=== PATIENT | male | born 1990 | race Caucasian/White ===

== ENCOUNTER 2019-08-03 11:19 | Outpatient (CLI) | payer OTHER, SELFPAY ==
--- NOTE | ~2019-08-03 | XR_ITS ---
EXAMINATION: XR chest 2V DATE: 08/03/2019 11:43 INDICATION: Chest pain TECHNIQUE: PA and lateral views of the chest are obtained. COMPARISON: None available FINDINGS: The lungs are free of acute opacities. There is no pleural effusion or pneumothorax. The ca rdiomediastinal silhouette is normal. The visualized bones and soft tissues are unremarkable. IMPRESSION: 1. No acute cardiopulmonary abnormality. Reviewed, dictated and finalized at location A.
--- NOTE | 2019-08-03 11:22 | ECG_ITS ---
Measurements Intervals [place] Rate: 63 P: 63 OK: 165 QRS: 58 QRSD: 102 T: 46 QT: 382 QTc: 393 Interpretive Statements SINUS RHYTHM DELAYED PRECORDIAL R/S TRANSITION BASELINE ARTIFACT- I, III, AVL BORDERLINE ECG Electronically Signed On 08-03-2019 11:49:37 CDT by Ramsey Ro D.O.
== END 2019-08-03 11:20 | disposition home or self-care (01) ==
LOC: CHSCARD 11:22
PROVIDERS: PCP Family Medicine; Visit Provider Family Medicine
DX: R07.9 Chest pain, unspecified (principal)
CPT/HCPCS: 71046; 93005

== ENCOUNTER 2019-08-06 11:16 | Emergency (ER) | payer OTHER, SELFPAY ==
[2019-08-06 11:36] VITALS: BP 137/80; PULSE 86; RESP 18; TEMP 36.8; O2SAT 98
--- NOTE | 2019-08-06 12:25 | ED.LOWEXIN ---
HPI - Extremity Injury (Lower) General Chief Complaint: Extremity Injury, Lower Stated Complaint: left hip pain Source: patient Mode of arrival: ambulatory Limitations: no limitations History of Present Illness HPI Narrative: This 28-year-old male developed left proximal thigh pain 2 days ago when he pivoted while standing. He immediately developed intense 10/10 sharp pain in the upper left leg. The pain is subsided somewhat since then. It increases with walking, climbing stairs, and driving. Sitting of relieves the pain. Laying on his left side at night reduces pain which is definitely increased if he is on his back or right side with his knees bent. The pain was radiating down his left thigh to his knee today. He is worried about attempting to do his job having severe pain. He has a history of L5-S1 disc herniation status post microscopic surgical repair. Has had mild low back discomfort on some days. Never associated with radiation. His radiculopathy when he had his radiation was on the right side. This pain is not associated with back discomfort. he has only slight discomfort with forward flexion of the hip. He was seen Two days ago by Dr. Horton with 2 1 minutes episodes that same day of severe sharp midsternal pain. This was associated with a spike seen on EKG. He was referred to cardiology. No PPI or other medications were started. He has had no chest pain since Related Data Home Medications Medication Instructions Recorded Confirmed No Home Medications 07/20/19 08/06/19 Allergies Allergy/AdvReac Type Severity Reaction Status Date / Time No Known Allergies Allergy Verified 08/03/19 11:21 Review of Systems Constitutional: Constitutional: Denies fever(s) Cardiovascular: Cardiovascular: Reports no additional cardiovascular complaints Respiratory: Respiratory: Denies dyspnea Gastrointestinal: Gastrointestinal: Denies diarrhea, Denies nausea and Denies vomiting Musculoskeletal: Musculoskeletal: Reports no additional musculoskeletal complaints Neurologic: Comments: No numbness or weakness in his lower extremities. [facility] Past Medical History Medical History No active medical problems Social History Social History Smoking status: Never smoker Additional living arrangements comments: . Exam Narrative: Exam Narrative: Healthy-appearing male sitting on the bed with his right leg over the side in his left leg being on the bed hip abducted and internally rotated. Able to walk without a limp. Const: Orientation/consciousness: patient oriented x3 Chest: Chest palpation & inspection: normal inspection of the chest Resp: Effort & Inspection: normal respiratory effort Cardio: Rhythm: regular rhythm Back/Spine/Pelvis: Back: no CVA tenderness Other: no lumbar sacral spinous tenderness with percussion. No lumbosacral tenderness. Skin: General skin exam: normal color Neuro: Other: 2+ patellar and ankle jerk reflexes, symmetric. Light touch sensation to the feet are intact. 5+ great toe dorsiflexion strength, negative straight leg raise. Extrem: Other: left lateral leg is without swelling ecchymosis erythema or warmth. Tender over the left greater trochanter and distal to the mid thigh. Endpoint of internal rotation reproduces the pain external rotation does not range of motion is within normal limits. Addie's test is positive Course Course Emergency Course: Dx and treatment of IT Band syndrome discussed. 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 Vital Signs Vital signs: Vital Signs Temperature 36.8 C 08/06/19 11:36 Pulse Rate 86 08/06/19 11:36 Respiratory Rate 18 08/06/19 11:36 Blood Pressure 137/80 08/06/19 11:36 Pulse Oximetry 98 08/06/19 11:36 Temperature 36.8 C 08/06/19 11:36 Pulse Rate
[2019-08-06 12:30] VITALS: RESP 16
== END 2019-08-06 12:31 | disposition home or self-care (01) ==
PROVIDERS: Emergency Provider Family Medicine; PCP Family Medicine
DX: M76.32 Iliotibial band syndrome, left leg (principal)
CPT/HCPCS: 99281; 99282

== ENCOUNTER 2019-08-28 12:19 | Outpatient (CLI) | payer OTHER, SELFPAY ==
--- NOTE | 2019-08-28 13:02 | EST_ITS ---
Patient Info Name: Benny Machado Age: 28 years : 1990 Gender: Male Ht: 70 in Exam Date: 08/28/2019 1:14 PM Exam Location: [facility] Patient Status: Outpatient Admit Date: 08/28/2019 Staff Ordering Physician: Ramsey Ro DO Attending Provider: DO JULISSA Exam Type: CA stress test treadmill Summary 1. 1. Negative Del exercise stress test for ischemic ST changes by ECG criteria. 2. 2. Good functional capacity, achieving 10.9 METs of workload. 3. 3. Appropriate HR response to exercise. 4. 4. Appropriate HR recovery at 1 minute post exercise. 5. 5. No imaging with stress testing. 6. 6. Patient informed of the above results. Protocol: Del Stress ECG Details Stage: REST Duration (min): 1 min : 11 sec Speed (mph): 0.0 Grade (%): 0 HR (bpm): 88 SBP (mmHg): 126 DBP (mmHg): 93 METS: --- Stage: REST Duration (min): 2 min : 53 sec Speed (mph): 0.0 Grade (%): 0 HR (bpm): 76 SBP (mmHg): 126 DBP (mmHg): 93 METS: --- Stage: STAGE 1 Duration (min): 1 min : 0 sec Speed (mph): 1.7 Grade (%): 10 HR (bpm): 107 SBP (mmHg): 126 DBP (mmHg): 93 METS: --- Stage: STAGE 1 Duration (min): 2 min : 0 sec Speed (mph): 1.7 Grade (%): 10 HR (bpm): 109 SBP (mmHg): 126 DBP (mmHg): 93 METS: --- Stage: STAGE 1 Duration (min): 3 min : 0 sec Speed (mph): 1.7 Grade (%): 10 HR (bpm): 111 SBP (mmHg): 128 DBP (mmHg): 86 METS: --- Stage: STAGE 2 Duration (min): 1 min : 0 sec Speed (mph): 2.5 Grade (%): 12 HR (bpm): 121 SBP (mmHg): 128 DBP (mmHg): 86 METS: --- Stage: STAGE 2 Duration (min): 2 min : 0 sec Speed (mph): 2.5 Grade (%): 12 HR (bpm): 127 SBP (mmHg): 128 DBP (mmHg): 86 METS: --- Stage: STAGE 2 Duration (min): 3 min : 0 sec Speed (mph): 2.5 Grade (%): 12 HR (bpm): 134 SBP (mmHg): 155 DBP (mmHg): 90 METS: --- Stage: STAGE 3 Duration (min): 1 min : 0 sec Speed (mph): 3.4 Grade (%): 14 HR (bpm): 143 SBP (mmHg): 155 DBP (mmHg): 90 METS: --- Stage: STAGE 3 Duration (min): 2 min : 0 sec Speed (mph): 3.4 Grade (%): 14 HR (bpm): 155 SBP (mmHg): 155 DBP (mmHg): 90 METS: --- Stage: STAGE 3 Duration (min): 3 min : 0 sec Speed (mph): 3.4 Grade (%): 14 HR (bpm): 156 SBP (mmHg): 177 DBP (mmHg): 99 METS: --- Stage: STAGE 4 Duration (min): 0 min : 22 sec Speed (mph): 4.2 Grade (%): 16 HR (bpm): 164 SBP (mmHg): 177 DBP (mmHg): 99 METS: --- Stage: RECOVERY Duration (min): 0 min : 37 sec Speed (mph): 0.0 Grade (%): 0 HR (bpm): 145 SBP (mmHg): 177 DBP (mmHg): 99 METS: --- Stage: RECOVERY Duration (min): 1 min : 37 sec Speed (mph): 0.0 Grade (%): 0 HR (bpm): 109
[2019-08-28 14:33] LABS: Cholesterol 141 mg/dL (0-200); HDL Direct 50 mg/dL (40-60); LDL Cholesterol Calculated 80 mg/dL (<130); Triglycerides 55 mg/dL (0-150)
== END 2019-08-28 12:20 | disposition home or self-care (01) ==
LOC: CHSCARD 12:21
PROVIDERS: PCP Family Medicine; Visit Provider Internal Medicine Cardiovascular Disease
DX: R07.9 Chest pain, unspecified (principal); E66.9 Obesity, unspecified
CPT/HCPCS: 36415; 80061; 93017

== ENCOUNTER 2019-11-08 21:21 | Emergency (ER) | payer OTHER, SELFPAY ==
--- NOTE | ~2019-11-08 | XR_ITS ---
EXAMINATION: XR finger 4th LT min 2V INDICATION: Left fourth finger pain, initial encounter TECHNIQUE: Four views of the left fourth finger are obtained. COMPARISON: None available FINDINGS: There is an acute, traumatic, comminuted tuft fracture of the fourth distal phalanx. The lloyd int spaces are normal. Soft tissue swelling surrounds the fracture. IMPRESSION: 1. Acute comminuted tuft fracture of the fourth distal phalanx. Reviewed, dictated and finalized at location A.
[2019-11-08 21:21] VITALS: BP 139/84; PULSE 83; RESP 16; TEMP 36.9; O2SAT 98
--- NOTE | 2019-11-08 21:39 | ED.UPPEXIN ---
HPI - Extremity Injury (Upper) General Chief Complaint: Extremity Injury, Upper Stated Complaint: smashed finger Time Seen by Provider: 11/08/19 21:39 Source: patient and RN notes reviewed Mode of arrival: ambulatory Limitations: no limitations History of Present Illness complaint: injury to: left and finger (left ring) Onset (ago): hour(s) (8) Other injuries: none Handedness: right Place: work Severity: mild Exacerbating factors: movement of extremity Context: direct blow Related Data Home Medications Medication Instructions Recorded Confirmed No Home Medications 07/20/19 11/08/19 Allergies Allergy/AdvReac Type Severity Reaction Status Date / Time No Known Allergies Allergy Verified 08/18/19 11:32 Review of Systems Review of Systems: All systems reviewed & are unremarkable except as noted in HPI and below PMFSH Past Medical History Medical History No active medical problems Surgical History Surgical History (Updated 11/08/19 @ 21:44 by Randy Mathias MD) History of back surgery Social History Social History (Updated 11/08/19 @ 21:45 by Randy Mathias MD) Smoking status: Never smoker Smokeless tobacco user: chewing tobacco Additional living arrangements comments: . Exam Const: General: healthy appearing and no acute distress Nutritional Appearance: well nourished Orientation/consciousness: patient oriented x3 HENMT: Head: normal to inspection Face and sinus: normal facial exam Eyes: Conjunctivae: conjunctivae normal Pupils: Equal, round and reactive pupils present EOM: EOMs intact bilaterally Neck: Neck: normal visual inspection Resp: Effort & Inspection: normal respiratory effort Auscultation: clear to auscultation bilaterally Cardio: Rate: regular rate Rhythm: regular rhythm GI: Auscultation: normal bowel sounds Back/Spine/Pelvis: Cervical Spine: cervical ROM normal Thoracic/Lumbar Spine: thoraco-lumbar ROM normal Skin: General skin exam: normal color Rashes: no rashes Neuro: General: patient oriented x3, moves all extremities and no focal motor deficits Speech: normal speech Gait exam (Neuro): Normal gait present Extrem: Left upper extremity: normal capillary refill and hand neuromotor exam normal, neurosensory exam normal, tenderness of the 4th digit at the distal phalanx and involving the fingernail and swelling of the 4th digit at the distal phalanx Psych: Appearance: grossly normal and well kempt Mental Status: mental status grossly normal Affect: normal affect Attitude: cooperative Thought content: Yes Normal thought content present Course Course Emergency Course: Initial fracture management completed in the ED. Procedures Orthopedic Splinting/Casting Injury #1: Splinting/Casting Date: 11/08/19 Splinting/Casting Time: 22:05 Upper Extremity Injury Location: finger (left ring) Splint: prefabricated (metal finger splint) Pre-Procedure Neuro Vascular Exam: normal Post-Procedure Neuro Vascular Exam: normal Discharge Plan Discharge Clinical Impression: Closed fracture of tuft of distal phalanx of finger Patient Disposition: Home, Self-Care Condition: Stable Instructions: Finger Fracture (ED) Additional Instructions: use Tylenol and/or Motrin as needed for pain, wear splint for 4-6 weeks. Follow up with your primary care in 2 weeks. Prescriptions: No Action No Home Medications RF: 0 Follow-up/Referrals: UNKNOWN,DOCTOR [Primary Care Provider] - Time of Disposition: 22:10 Discharge Date/Time: 11/08/19 22:11
[2019-11-08 22:10] VITALS: RESP 16; O2SAT 98
== END 2019-11-08 22:11 | disposition home or self-care (01) ==
PROVIDERS: Emergency Provider Emergency Medicine; PCP Family Medicine
DX: S62.635A Displaced fracture of distal phalanx of left ring finger, initial encounter for closed fracture (principal); W22.8XXA Striking against or struck by other objects, initial encounter
CPT/HCPCS: 29130; 73140; 99282; 99284

== ENCOUNTER 2021-02-24 09:37 | Outpatient (CLI) | payer OTHER, SELFPAY ==
[2021-02-24 09:50] LABS: Basophils Absolute Auto 0.06 K/mm3 (0.00-0.10); Basophils Percent Auto 0.8 % (0.0-1.0); Eosinophils Absolute Auto 0.08 K/mm3 (0.02-0.50); Eosinophils Percent Auto 1.1 % (1.0-6.0); Hematocrit 45.5 % (40.0-54.0); Hemoglobin 15.5 g/dL (14.0-18.0); Immature Granulocyte Absolute 0.05 K/mm3 (0.00-0.00); Immature Granulocyte Percent A 0.7 % (0.0-0.0); Lymphocytes Absolute Auto 2.23 K/mm3 (1.10-4.50); Lymphocytes Percent Auto 30.6 % (18.0-42.0); Mean Corpuscular HGB Conc 34.1 g/dL (32.0-36.0); Mean Corpuscular Volume 85.2 fL (78.0-102.0); Mean Platelet Volume 9.8 fl (8.7-11.0); Monocytes Absolute Auto 0.53 K/mm3 (0.10-0.90); Monocytes Percent Auto 7.3 % (2.0-11.0); Neutrophils Absolute Auto 4.3 K/mm3 (1.7-7.2); Neutrophils Percent Auto 59.5 % (50.0-70.0); Platelet Count Result 331 K/mm3 (150-420); Red Blood Count 5.34 M/mm3 (4.70-6.10); Red Cell Distribution Width 12.1 % (11.6-14.4); White Blood Count 7.3 K/mm3 (4.8-10.8)
[2021-02-24 10:48] LABS: Alanine Aminotransferase 46 U/L (16-63); Albumin Level 3.9 g/dL (3.4-5.0); Alkaline Phosphatase 167 U/L (46-116); Amylase 26 U/L (25-115); Anion Gap 5 mmol/L (8-16); Aspartate Amino Transferase 18 U/L (15-37); Bilirubin,Total 0.3 mg/dL (0.00-1.00); Blood Urea Nitrogen 11 mg/dL (7-18); Calcium 8.9 mg/dL (8.5-10.1); Carbon Dioxide 29 mmol/L (21-32); Chloride 105 mmol/L (98-108); Estimated Glomerular Filt Rate > 60; Glucose 104 mg/dL (70-99); Lipase 134 U/L (73-393); Osmolality Calculated 287 mOsm/kg (285-295); Potassium 4.6 mmol/L (3.5-5.1); Sodium 139 mmol/L (136-145); Total Protein 7.2 g/dL (6.4-8.2)
[2021-02-24 10:54] LABS: CRP < 0.5 mg/dL (0.0-0.9)
== END 2021-02-24 09:38 | disposition home or self-care (01) ==
LOC: CHSLAB 09:38
PROVIDERS: PCP Nurse Practitioner Family; Visit Provider Nurse Practitioner Family
DX: R19.7 Diarrhea, unspecified (principal)
CPT/HCPCS: 36415; 80053; 82150; 83690; 85025; 86140

== ENCOUNTER 2021-03-04 09:06 | Outpatient (CLI) | payer OTHER, SELFPAY ==
[2021-03-04 09:16] LABS: Occult Blood Negative (Negative)
== END 2021-03-04 09:07 | disposition home or self-care (01) ==
LOC: CHSLAB 09:08
PROVIDERS: PCP Nurse Practitioner Family; Visit Provider Nurse Practitioner Family
DX: R19.7 Diarrhea, unspecified (principal)
CPT/HCPCS: 82272; 87045; 87427

== ENCOUNTER 2021-03-06 12:40 | Emergency (ER) | payer OTHER, SELFPAY ==
[2021-03-06 13:01] VITALS: BP 143/90; PULSE 88; RESP 20; TEMP 36.7; O2SAT 100
--- NOTE | 2021-03-06 13:10 | ED.BACK ---
HPI - Back Pain/Injury General Chief Complaint: Back Pain/Injury Stated Complaint: back pain Source: patient and family Mode of arrival: ambulatory Limitations: no limitations History of Present Illness HPI Narrative: patient presents with some right lower back pain and tenderness with movement palpation after he was working doing some heavy lifting patient did try some [id number] Tylenol with some minimal relief there is no dysuria no saddle Paresthesias, no fever chills. MD elicited complaint: back pain and back injury Pertinent past history: prior back pain Onset (ago): day(s) Timing: constant Severity: moderate Pain scale (0-10): 6 Quality: spasming Location: lumbar spine Related Data Allergies Allergy/AdvReac Type Severity Reaction Status Date / Time No Known Allergies Allergy Verified 02/24/21 09:03 Review of Systems Review of Systems: All systems reviewed & are unremarkable except as noted in HPI and below PMFSH Past Medical History Medical History Acute respiratory disease Chest pain No active medical problems Obesity Surgical History Surgical History History of back surgery Social History Social History Smoking status: Never smoker Smokeless tobacco user: chewing tobacco Additional living arrangements comments: . Exam Const: General: no acute distress and alert Orientation/consciousness: patient oriented x3 HENMT: Head: normal to inspection Eyes: Conjunctivae: conjunctivae normal Pupils: Equal, round and reactive pupils present EOM: EOMs intact bilaterally Direct Ophthalmoscopy: no photophobia Neck: Neck: normal visual inspection Chest: Chest palpation & inspection: normal inspection of the chest Resp: Effort & Inspection: normal respiratory effort Cardio: Rate: regular rate Rhythm: regular rhythm Urinary Catheter: Urinary Catheter: patent and draining Skin: General skin exam: normal color Rashes: no rashes Extrem: General: normal to inspection and no pedal edema Psych: Mental Status: mental status grossly normal Affect: normal affect Course Course Emergency Course: patient pain level has improved with injection of Toradol and orphenadrine. Vital Signs Vital signs: Vital Signs Temperature 36.7 C 03/06/21 13:01 Pulse Rate 88 03/06/21 13:01 Respiratory Rate 20 03/06/21 13:01 Blood Pressure 143/90 H 03/06/21 13:01 Pulse Oximetry 100 03/06/21 13:01 Temperature 36.7 C 03/06/21 13:01 Pulse Rate 88 03/06/21 13:01 Respiratory Rate 20 03/06/21 13:01 Blood Pressure 143/90 H 03/06/21 13:01 Pulse Oximetry 100 03/06/21 13:01 Critical Care Time Critical Care Time Critical Care Time: No Discharge Plan Discharge Clinical Impression: Strain of lumbar region Qualifiers: Encounter type: initial encounter Qualified Code(s): S39.012A - Strain of muscle, fascia and tendon of lower back, initial encounter Patient Disposition: Home, Self-Care Condition: Stable Instructions: Antibiotic Form, Acute Low Back Pain (ED) Additional Instructions: Take medicines as prescribed and follow-up with primary care for provider for further evaluation treatment. Prescriptions: New tramadol [Ultram] 50 mg tablet 50 mg PO Q6H PRN (Reason: pain) Qty: 14 RF: 0 cyclobenzaprine 10 mg tablet 10 mg PO TID Qty: 20 RF: 0 No Action dicyclomine 20 mg tablet 20 mg PO QID Qty: 20 RF: 0 psyllium husk [Metamucil] 0.4 gram capsule 0.4 g PO DAILY Qty: 30 RF: 0 Follow-up/Referrals: Christina Ricketts NP [Primary Care Provider] - Stand Alone Forms: Work/School Release IP Time of Disposition: 13:15
[2021-03-06] MEDS: KETOROLAC (*BKC) 60 MG/2 ML VIAL IM (13:27)
[2021-03-06] MEDS: ORPHENADRINE CITRATE 100 MG TABLET.ER PO (13:28)
[2021-03-06 14:04] VITALS: BP 126/96; PULSE 77; RESP 20; O2SAT 98
== END 2021-03-06 13:45 | disposition home or self-care (01) ==
PROVIDERS: Emergency Provider Emergency Medicine; PCP Nurse Practitioner Family
DX: S39.012A Strain of muscle, fascia and tendon of lower back, initial encounter (principal); X50.0XXA Overexertion from strenuous movement or load, initial encounter
CPT/HCPCS: 96372; 99283; A9270; J1885

== ENCOUNTER 2021-09-03 12:01 | Outpatient (CLI) | payer OTHER, SELFPAY ==
--- NOTE | ~2021-09-03 | XR_ITS ---
EXAMINATION: XR chest 2V 09/03/2021 12:17 INDICATION: Chronic shortness of breath PROCEDURE: 2 view chest COMPARISON: Comparison to multiple prior studies sequentially, with oldest reviewed study dated 08/02. FINDINGS: The lungs are clear. The cardiomediastinal silhouette is within normal limits. There are no pleural effusions. There is no pneumothorax suspected. IMPRESSION: 1: NO ACUTE CARDIOPULMONARY DISEASE. Reviewed, dictated and finalized at location A.
== END 2021-09-03 12:02 | disposition home or self-care (01) ==
LOC: CHSIMG 12:06
PROVIDERS: PCP Nurse Practitioner Family; Visit Provider Nurse Practitioner Family
DX: R06.02 Shortness of breath (principal)
CPT/HCPCS: 71046